=== PATIENT | male | born 1975 | race Caucasian/White ===

== ENCOUNTER 2019-03-11 12:45 | Emergency (ER) | payer OTHER, SELFPAY ==
--- NOTE | 2019-03-11 12:49 | DI.RAD.S_ITS ---
PROCEDURE: XR CHEST 2V INDICATIONS: pain injury TECHNIQUE: 2 views of the chest were acquired. COMPARISON: [facility], CR, RIBS UNILATERAL WITH PA CXR, 05/04/2017, 10:06. FINDINGS: Surgical changes and devices: None. Lungs and pleura: Lungs are clear. No pleural effusions or pneumothorax. Mediastinum: Mediastinal contours are normal. Heart size is normal. Bones and chest wall: No suspicious bony abnormalities. Soft tissues appear unremarkable. IMPRESSION: No acute cardiopulmonary disease. Dictated by: Mary Arriola M.D. on 03/11/2019 at 13:40 Approved by: Mary Arriola M.D. on 03/11/2019 at 13:41
[2019-03-11 12:50] VITALS: BP 147/97; PULSE 64; RESP 16; TEMP 36.3; O2SAT 100; BMI 30.4
--- NOTE | 2019-03-11 13:50 | ED.SOB ---
HPI - SOB/Dyspnea General Chief Complaint: Shortness of Breath/Dyspnea Stated Complaint: fell into wood pile left side rib cage hurting Time Seen by Provider: 03/11/19 13:27 Source: patient and family Mode of arrival: ambulatory Limitations: no limitations History of Present Illness 43-year-old male smoker, otherwise healthy presents with his in the chief complaint of severe left-sided rib pain and shortness of breath with deep inspiration. Yesterday he was chopping wood and tripped and fell backwards onto his left side ribs. He denies any head neck pain. He denies any hemoptysis. He states his pain is worse with motion or with a deep breath. He denies any blood in his urine or nausea, vomiting. He is not dizzy nor weak or lightheaded MD Complaint: shortness of breath and pain with inspiration Onset (ago): day(s) Severity: moderate Consistency/Duration: constant Relieving factors: rest Exacerbating factors: coughing and inspiration Associated symptoms: denies other symptoms Treatment prior to arrival: none Related Data Home oxygen amount: none Previous Rx's Medication Instructions Recorded ibuprofen 800 mg PO Q6H PRN #40 tab 05/04/17 hydrocodone-acetaminophen 1 tab PO Q4-6H PRN #20 tab 03/11/19 ondansetron 4 mg PO TID-QID PRN #10 tab 03/11/19 Allergies Allergy/AdvReac Type Severity Reaction Status Date / Time No Known Drug Allergies Allergy Verified 03/11/19 12:50 Review of Systems Constitutional Denies chills, Denies fever(s), Denies lethargy and Denies weakness Eyes Denies change in vision, Denies eye discharge, Denies irritation and Denies loss of vision ENT Ears, Nose, Mouth, and Throat: Denies change in voice, Denies neck pain and Denies sore throat Cardiovascular Reports chest pain, Denies irregular heart rhythm, Denies lightheadedness, Denies palpitations, Reports dyspnea, Denies dyspnea on exertion and Denies orthopnea Respiratory Denies cough, Reports pain on inspiration, Reports dyspnea, Denies dyspnea on exertion and Denies wheezing Gastrointestinal Gastrointestinal: Denies abdominal pain, Denies change in bowel habits, Denies diarrhea, Denies nausea and Denies vomiting Genitourinary Denies hematuria, Denies flank pain, Denies urinary incontinence and Denies urinary urgency Musculoskeletal Denies neck pain Integumentary/Breasts Denies pruritus, Denies erythema, Denies rash and Denies wounds Neurologic Denies confusion, Denies loss of vision and Denies weakness Psychiatric Denies anxiety, Denies confusion, Denies depression, Denies homicidal ideation and Denies suicidal ideation Endocrine Denies palpitations Hematologic/Lymphatic Denies easy bruising Allergic/Immunologic Denies wheezing PFSH Social History Smoking Status: Current some day smoker Social History Smoking Status: Current some day smoker Exam Narrative Exam Narrative: GENERAL: 43-year-old male appears stated age, obviously very uncomfortable and complaining of left-sided posterior rib pain. HEAD: Atraumatic. Normocephalic. No temporal or scalp tenderness. EYES: Pupils equal round and reactive. Extraocular motions intact. No scleral icterus. No injection or drainage. ENT: Nose without bleeding, purulent drainage or septal hematoma. Throat without erythema, tonsillar hypertrophy or exudate. Uvula midline. Airway patent. NECK: Trachea midline. No JVD or lymphadenopathy. Supple, nontender, no meningeal signs. CARDIOVASCULAR: Regular rate and rhythm without murmurs, gallops, or rubs. Tender to palpation of left lateral ribs, no ecchymosis or crepitance RESPIRATORY: Clear to auscultation. Breath sounds equal bilaterally. No wheezes, rales, or rhonchi. GASTROINTESTINAL: Abdomen soft, non-tender, nondistended. No hepato-splenomegaly, or palpable masses. No guarding. EXTREMITIES: No clubbing, cyanosis, or edema. No joint tenderness, effusion, or edema noted. BACK: Nontender without deformity or crepitance. No flank tenderness. NEURO: AOx3. SKIN: No rash or erythema. Initial Vital Signs Initial Vital Signs: Vital Signs Temperature 97.3 F L 03/11/19 12:50 Pulse Rate 64 03/11/19 12:50 Respiratory Rate 16 03/11/19 12:50 Blood Pressure 147/97 H 03/11/19 12:50 Pulse Oximetry 100 03/11/19 12:50 Course Orders Ordered: ED Orders 03/11/19 12:49 XR chest 2V Stat 03/11/19 13:54 US renal complete Stat Vital Signs - 8 hr 03/11/19 12:50 03/11/19 14:31 Temperature 97.3 F L Pulse Rate 64 57 L Respiratory Rate 16 20 Blood Pressure 147/97 H 129/77 Pulse Oximetry 100 MDM - SOB/Dyspnea Lab Data Urine Dip Bedside Urine Glucose Negative Bedside Urine Bilirubin - Negative Bedside Urine Ketone +/- 5 Urine Specific [place] 0.015 Bedside Urine Occult Blood +/- Bedside Urine Protein +/- 15 Bedside Urine Urobilinogen - Negative Bedside Urine Nitrite - Negative Bedside Urine Leukocytes - Negative Esterase Imaging Data Chest x-ray: Radiologist's impression: [address] [address] XRay Report Signed Patient: Jacoby Gupta WMR#: [id number] : 1975Acct:[id number] Age/Sex: 43 / MDate of Service: 03/11/19 Loc: ED Accession Number: [id number] Procedure: XR chest 2V Ordering Provider: Fernando Campos D.O. PROCEDURE: XR CHEST 2V INDICATIONS: pain injury TECHNIQUE: 2 views of the chest were acquired. COMPARISON: [facility], CR, RIBS UNILATERAL WITH PA CXR, 05/04/2017, 10:06. FINDINGS: Surgical changes and devices: None. Lungs and pleura: Lungs are clear. No pleural effusions or pneumothorax. Mediastinum: Mediastinal contours are normal. Heart size is normal. Bones and chest wall: No suspicious bony abnormalities. Soft tissues appear unremarkable. IMPRESSION: No acute cardiopulmonary disease. Dictated by: Mary Arriola M.D. on 03/11/2019 at 13:40 Renal US: Radiologist's impression: Jacoby Gupta W 43 M [address] [address] Ultrasound Report Signed Patient: Jacoby Gupta WMR#: [id number] : 1975Acct:[id number] Age/Sex: 43 / MDate of Service: 03/11/19 Loc: ED Accession Number: [id number] Procedure: US renal complete Ordering Provider: Fernando Campos D.O. PROCEDURE: US RENAL COMPLETE INDICATIONS: HEMATURIA POST FALL TECHNIQUE: Real-time scanning was performed of the kidneys and bladder, with image documentation. COMPARISON: None. FINDINGS: Kidneys: Kidneys are normal in size. Right kidney measures 11.4 cm long; left kidney measures 10.7 cm long. Right renal cortical thickness is 2.0 cm; left renal cortical thickness is 1.8 cm. Renal cortical echotexture is normal. No cystic or solid renal lesions are identified. A nonobstructing 7 mm calculus is evident within the left renal collecting system that demonstrates mild posterior acoustical shadowing. No additional definite renal calculi are evident. Bladder: Decompressed and subsequently not adequately evaluated. Miscellaneous: No free pelvic fluid. IMPRESSION: 1. Nonobstructing left renal calculus. 2. No hydronephrosis. Dictated by: David Campos M.D. on 03/11/2019 at 13:39 MDM Narrative Medical decision making narrative: Patient with ground level fall onto logs presents with left posterior rib pain. Clear lung sounds bilaterally and x-ray suggests no pneumothorax or rib fracture. No pain in abdomen and urinary complaint but due to small amount of urine on the POC renal ultrasound was performed which was unremarkable. Patient given extensive return precautions and has had his questions answered to his apparent satisfaction Discharge Plan Departure Patient Disposition: Home Clinical Impression: Contusion of rib Qualifiers: Encounter type: initial encounter Laterality: left Qualified Code(s): S20.212A - Contusion of left front wall of thorax, initial encounter Discharge Date/Time: 03/11/19 14:30 Interventions: ED Discharge Assessment Last Done: 03/11/19 14:31 Instructions: DI for Rib Contusion Activity Restrictions/Additional Instructions: *You have been diagnosed with [ rib contusion ] *What to do: *Take medications as directed *Follow up with your primary care provider in 2-3 days, call for an appointment. Let them know you were seen in the Emergency Department and that we ask that you be seen in follow up *Return to ER if you should have any new, worsening or concerning symptoms such as dizziness, sweating, bright red blood in urine or stool, or other bothersome symptoms You have been prescribed narcotic medications. While on these medications you cannot drive or operate heavy machinery. Additionally you cannot sign legal documents or perform any duties such as this. 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 Please understand that we cannot provide further refills of narcotics or controlled substances through the ED and your pain management will need to be through your Primary Care Provider Prescriptions: New hydrocodone-acetaminophen 5-325 mg tablet 1 tab PO Q4-6H PRN (Reason: pain) Qty: 20 RF: 0 ondansetron 4 mg tablet,disintegrating 4 mg PO TID-QID PRN (Reason: nausea and vomiting) Qty: 10 RF: 0 No Action ibuprofen 800 MG tablet 800 mg PO Q6H PRNQty: 40 RF: 0
--- NOTE | 2019-03-11 13:54 | DI.US.S_ITS ---
PROCEDURE: US RENAL COMPLETE INDICATIONS: HEMATURIA POST FALL TECHNIQUE: Real-time scanning was performed of the kidneys and bladder, with image documentation. COMPARISON: None. FINDINGS: Kidneys: Kidneys are normal in size. Right kidney measures 11.4 cm long; left kidney measures 10.7 cm long. Right renal cortical thickness is 2.0 cm; left renal cortical thickness is 1.8 cm. Renal cortical echotexture is normal. No cystic or solid renal lesions are identified. A nonobstructing 7 mm calculus is evident within the left renal collecting system that demonstrates mild posterior acoustical shadowing. No additional definite renal calculi are evident. Bladder: Decompressed and subsequently not adequately evaluated. Miscellaneous: No free pelvic fluid. IMPRESSION: 1. Nonobstructing left renal calculus. 2. No hydronephrosis. Dictated by: David Campos M.D. on 03/11/2019 at 13:39 Approved by: David Campos M.D. on 03/11/2019 at 13:40
--- NOTE | 2019-03-11 14:13 | ED_ITS ---
HPI - SOB/Dyspnea General Chief Complaint: Shortness of Breath/Dyspnea Stated Complaint: fell into wood pile left side rib cage hurting Time Seen by Provider: 03/11/19 13:27 Source: patient and family Mode of arrival: ambulatory Limitations: no limitations History of Present Illness 43-year-old male smoker, otherwise healthy presents with his in the chief complaint of severe left-sided rib pain and shortness of breath with deep insp iration. Yesterday he was chopping wood and tripped and fell backwards onto his left side ribs. He denies any head neck pain. He denies any hemoptysis. He states his pain is worse with motion or with a deep breath. He denies any blood in his urine or nausea, vomiting. He is not dizzy nor weak or lightheaded MD Complaint: shortness of breath and pain with inspiration Onset (ago): day(s) Severity: moderate Consistency/Duration: constant Relieving factors: rest Exacerbating factors: coughing and inspiration Associated symptoms: denies other symptoms Treatment prior to arrival: none Related Data Home oxygen amount: none Previous Rx's Medication Instructions Recorded ibuprofen 800 mg PO Q6H PRN #40 tab 05/04/17 hydrocodone-acetaminophen 1 tab PO Q4-6H PRN #20 tab 03/11/19 ondansetron 4 mg PO TID-QID PRN #10 tab 03/11/19 Allergies Allergy/AdvReac Type Severity Reaction Status Date / Time No Known Drug Allergies Allergy Verified 03/11/19 12:50 Review of Systems Constitutional Denies chills, Denies fever(s), Denies lethargy and Denies weakness Eyes Denies change in vision, Denies eye discharge, Denies irritation and Denies loss of vision ENT Ears, Nose, Mouth, and Throat: Denies change in voice, Denies neck pain and Denies sore throat Cardiovascular Reports chest pain, Denies irregular heart rhythm, Denies lightheadedness, Denies palpitations, Reports dyspnea, Denies dyspnea on exertion and Denies orthopnea Respiratory Denies cough, Reports pain on inspiration, Reports dyspnea, Denies dyspnea on exertion and Denies wheezing Gastrointestinal Gastrointestinal: Denies abdominal pain, Denies change in bowel habits, Denies diarrhea, Denies nausea and Denies vomiting Genitourinary Denies hematuria, Denies flank pain, Denies urinary incontinence and Denies urinary urgency Musculoskeletal Denies neck pain Integumentary/Breasts Denies pruritus, Denies erythema, Denies rash and Denies wounds Neurologic Denies confusion, Denies loss of vision and Denies weakness Psychiatric Denies anxiety, Denies confusion, Denies depression, Denies homicidal ideation and Denies suicidal ideation Endocrine Denies palpitations Hematologic/Lymphatic Denies easy bruising Allergic/Immunologic Denies wheezing PFSH Social History Smoking Status: Current some day smoker Social History Smoking Status: Current some day smoker Exam Narrative Exam Narrative: GENERAL: 43-year-old male appears stated age, obviously very uncomfortable and complaining of left-sided posterior rib pain. HEAD: Atraumatic. Normocephalic. No temporal or scalp tenderness. EYES: Pupils equal round and reactive. Extraocular motions intact. No scleral icterus. No injection or drainage. ENT: Nose without bleeding, purulent drainage or septal hematoma. Throat without erythema, tonsillar hypertrophy or exudate. Uvula midline. Airway patent. NECK: Trachea midline. No JVD or lymphadenopathy. Supple, nontender, no meningeal signs. CARDIOVASCULAR: Regular rate and rhythm without murmurs, gallops, or rubs. Tender to palpation of left lateral ribs, no ecchymosis or crepitance RESPIRATORY: Clear to auscultation. Breath sounds equal bilaterally. No wheezes, rales, or rhonchi. GASTROINTESTINAL: Abdomen soft, non-tender, nondistended. No hepato- splenomegaly, or palpable masses. No guarding. EXTREMITIES: No clubbing, cyanosis, or edema. No joint tenderness, effusion, or edema noted. BACK: Nontender without deformity or crepitance. No flank tenderness. NEURO: AOx3. SKIN: No rash or erythema. Initial Vital Signs Initial Vital Signs: Vital Signs Temperature 97.3 F L 03/11/19 12:50 Pulse Rate 64 03/11/19 12:50 Respiratory Rate 16 03/11/19 12:50 Blood Pressure 147/97 H 03/11/19 12:50 Pulse Oximetry 100 03/11/19 12:50 Course Orders Ordered: ED Orders 03/11/19 12:49 XR chest 2V Stat 03/11/19 13:54 US renal complete Stat Vital Signs - 8 hr 03/11/19 12:50 03/11/19 14:31 Temperature 97.3 F L Pulse Rate 64 57 L Respiratory Rate 16 20 Blood Pressure 147/97 H 129/77 Pulse Oximetry 100 MDM - SOB/Dyspnea Lab Data Urine Dip Bedside Urine Glucose Negative Bedside Urine Bilirubin - Negative Bedside Urine Ketone +/- 5 Urine Specific [place] 0.015 Bedside Urine Occult Blood +/- Bedside Urine Protein +/- 15 Bedside Urine Urobilinogen - Negative Bedside Urine Nitrite - Negative Bedside Urine Leukocytes - Negative Esterase Imaging Data Chest x-ray: Radiologist's impression: [address] [address] XRay Report Signed Patient: Jacoby Gupta WMR#: [id number] : 1975Acct:[id number] Age/Sex: 43 / MDate of Service: 03/11/19 Loc: ED Accession Number: [id number] Procedure: XR chest 2V Ordering Provider: Fernando Campos D.O. PROCEDURE: XR CHEST 2V INDICATIONS: pain injury TECHNIQUE: 2 views of the chest were acquired. COMPARISON: [facility], CR, RIBS UNILATERAL WITH PA CXR, 05/04/2017, 10:06. FINDINGS: Surgical changes and devices: None. Lungs and pleura: Lungs are clear. No pleural effusions or pneumothorax. Mediastinum: Mediastinal contours are normal. Heart size is normal. Bones and chest wall: No suspicious bony abnormalities. Soft tissues appear unremarkable. IMPRESSION: No acute cardiopulmonary disease. Dictated by: Mary Arriola M.D. on 03/11/2019 at 13:40 Renal US: Radiologist's impression: Jacoby Gupta W 43 M [address] [address] Ultrasound Report Signed Patient: Jacoby Gupta WMR#: [id number] : 1975Acct:[id number] Age/Sex: 43 / MDate of Service: 03/11/19 Loc: ED Accession Number: [id number] Procedure: US renal complete Ordering Provider: Fernando Campos D.O. PROCEDURE: US RENAL COMPLETE INDICATIONS: HEMATURIA POST FALL TECHNIQUE: Real-time scanning was performed of the kidneys and bladder, with image documentation. COMPARISON: None. FINDINGS: Kidneys: Kidneys are normal in size. Right kidney measures 11.4 cm long; left kidney measures 10.7 cm long. Right renal cortical thickness is 2.0 cm; left renal cortical thickness is 1.8 cm. Renal cortical echotexture is normal. No cystic or solid renal lesions are identified. A nonobstructing 7 mm calculus is evident within the left renal collecting system that demonstrates mild posterior acoustical shadowing. No additional definite renal calculi are evident. Bladder: Decompressed and subsequently not adequately evaluated. Miscellaneous: No free pelvic fluid. IMPRESSION: 1. Nonobstructing left renal calculus. 2. No hydronephrosis. Dictated by: David Campos M.D. on 03/11/2019 at 13:39 MDM Narrative Medical decision making narrative: Patient with ground level fall onto logs presents with left posterior rib pain. Clear lung sounds bilaterally and x-ray suggests no pneumothorax or rib fracture. No pain in abdomen and urinary complaint but due to small amount of urine on the POC renal ultrasound was performed which was unremarkable. Patient given extensive return precautions and has had his questions answered to his apparent satisfaction Discharge Plan Departure Patient Disposition: Home Clinical Impression: Contusion of rib Qualifiers: Encounter type: initial encounter Laterality: left Qualified Code(s): S20.212A - Contusion of left front wall of thorax, initial encounter Discharge Date/Time: 03/11/19 14:30 Interventions: ED Discharge Assessment Last Done: 03/11/19 14:31 Instructions: DI for Rib Contusion Activity Restrictions/Additional Instructions: *You have been diagnosed with [ rib contusion ] *What to do: *Take medications as directed *Follow up with your primary care provider in 2-3 days, call for an appointment. Let them know you were seen in the Emergency Department and that we ask that you be seen in follow up *Return to ER if you should have any new, worsening or concerning symptoms such as dizziness, sweating, bright red blood in urine or stool, or other bothersome symptoms You have been prescribed narcotic medications. While on these medications you cannot drive or operate heavy machinery. Additionally you cannot sign legal documents or perform any duties such as this. 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 Please understand that we cannot provide further refills of narcotics or controlled substances through the ED and your pain management will need to be through your Primary Care Provider Prescriptions: New hydrocodone-acetaminophen 5-325 mg tablet 1 tab PO Q4-6H PRN (Reason: pain) Qty: 20 RF: 0 ondansetron 4 mg tablet,disintegrating 4 mg PO TID-QID PRN (Reason: nausea and vomiting) Qty: 10 RF: 0 No Action ibuprofen 800 MG tablet 800 mg PO Q6H PRNQty: 40 RF: 0
[2019-03-11 14:31] VITALS: BP 129/77; PULSE 57; RESP 20
== END 2019-03-11 14:30 | disposition home or self-care (01) ==
PROVIDERS: Emergency Provider Emergency Medicine
DX: S20.212A Contusion of left front wall of thorax, initial encounter (principal); W01.0XXA Fall on same level from slipping, tripping and stumbling without subsequent striking against object, initial encounter
CPT/HCPCS: 71046; 76770; 81003; 99282; 99283

== ENCOUNTER 2019-09-30 15:16 | Emergency (ER) | payer OTHER, SELFPAY ==
[2019-09-30 15:20] VITALS: BP 145/97; PULSE 85; RESP 20; TEMP 36.8; O2SAT 100
--- NOTE | 2019-09-30 15:24 | DI.RAD.S_ITS ---
PROCEDURE: XR CHEST 2V INDICATIONS: chest pain TECHNIQUE: 2 views of the chest were acquired. COMPARISON: [facility], CR, XR CHEST 2V, 03/11/2019, 13:01. FINDINGS: Surgical changes and devices: None. Lungs and pleura: Lungs are clear. No pleural effusions or pneumothorax. Mediastinum: Mediastinal contours are normal. Heart size is normal. Bones and chest wall: No suspicious bony abnormalities. Soft tissues appear unremarkable. IMPRESSION: No acute cardiopulmonary disease process. Dictated by: Prabha Nicole MD, PhD on 09/30/2019 at 15:38 Approved by: Prabha Nicole MD, PhD on 09/30/2019 at 15:38
[2019-09-30 15:53] LABS: Add Manual Diff / Slide Review NO; Basophils Absolute Auto 100 /uL (0-100); Basophils Percent Auto 0.8 % (0-2); Eosinophils Absolute Auto 100 /uL (0-450); Eosinophils Percent Auto 1.4 % (2-4); Hematocrit 48.9 % (41-53); Hemoglobin 17.4 g/dL (13.5-17.5); Lymphocytes Absolute Auto 2500 /uL (1100-4500); Lymphocytes Percent Auto 30.3 % (25-40); Mean Corpuscular HGB Conc 35.6 % (30-36); Mean Corpuscular Hemoglobin 31.2 PG (26-34); Mean Corpuscular Volume 87.6 fL (80-100); Monocytes Absolute Auto 500 /uL (0-900); Monocytes Percent Auto 6.2 % (3-14); Neutrophils Absolute Auto 5100 /uL (1500-7000); Neutrophils Percent Auto 61.3 % (50-75); Platelet Count 351 X10^3/uL (150-400); Red Blood Cell Count 5.58 X10^6/uL (4.5-5.9); Red Cell Distribution Width 12.7 % (11.6-14.8); White Blood Cell Count 8.3 X10^3/uL (4.5-11.0)
[2019-09-30 16:25] LABS: Alanine Aminotransferase 63 IU/L (<50); Albumin Globulin Ratio 1.5 (1.0-2.8); Alkaline Phosphatase 103 U/L (38-126); Aspartate Aminotransferase 44 IU/L (17-59); Bilirubin Total 1.2 mg/dL (0.2-1.3); Blood Urea Nitrogen 22 mg/dL (9-20); Calcium 9.8 mg/dL (8.4-10.2); Carbon Dioxide 27 mmol/L (22-32); Chloride 100 mmol/L (98-107); Estimated Glomerular Filt Rate > 60.0 mL/min (>60); Globulin 3.3 g/dL (1.7-4.1); Glucose 111 mg/dL (70-100); HEMOLYSIS < 15 (0-50); Potassium 4.6 mmol/L (3.4-5.1); Sodium 138 mmol/L (137-145); Total Protein 8.3 g/dL (6.3-8.2)
--- NOTE | 2019-09-30 16:27 | ED_ITS ---
HPI - Chest Pain General Chief Complaint: Chest Pain Stated Complaint: Chest Pains Time Seen by Provider: 09/30/19 16:06 Source: patient Mode of arrival: Ambulatory Limitations: no limitations History of Present Illness HPI narrative: 44-year-old male here for evaluation of palpitations. He states they min going on for several years now however he has noticed them recently occurring more often in becoming more persistent. Denies any shortness of breath. Has never passed now because of the symptoms. Notices the more in the evening. No new medications. Called his primary doctor told him to come to the emergency department. Related Data Allergies Allergy/AdvReac Type Severity Reaction Status Date / Time No Known Drug Allergies Allergy Verified 03/11/19 12:50 Review of Systems Constitutional Constitutional: Denies fever(s) and Denies headache(s) ENT Ears, Nose, Mouth, and Throat: Denies headache(s) Cardiovascular Cardiovascular: Denies chest pain, Reports rapid heart rate, Denies lightheadedness, Reports palpitations and Denies dyspnea Respiratory Respiratory: Denies cough and Denies dyspnea Gastrointestinal Gastrointestinal: Reports abdominal pain, Denies nausea and Denies vomiting Musculoskeletal Musculoskeletal: Denies myalgias and Denies arthralgias Integumentary/Breasts Skin/Breast: Denies lesions and Denies rash Neurologic Neurologic: Denies behavioral changes and Denies headache(s) Psychiatric Psychiatric: Denies behavioral changes Endocrine Endocrine: Reports palpitations Patient History Medical History Allergic reaction (Inactive) Hives (Inactive) Social History Smoking Status: Current some day smoker Smoking Status: Current some day smoker tobacco type: cigarettes alcohol intake frequency: 0-2 drinks per day Substance Use Type: does not use Exam Initial Vital Signs Initial Vital Signs: Vital Signs Temperature 98.3 F 09/30/19 15:20 Pulse Rate 85 09/30/19 15:20 Respiratory Rate 20 09/30/19 15:20 Blood Pressure 145/97 H 09/30/19 15:20 Pulse Oximetry 100 09/30/19 15:20 Const General: cooperative, comfortable and well developed Limitations: mental status not altered Resp Effort & Inspection: normal respiratory effort Auscultation: clear to auscultation bilaterally Cardio Rate: regular rate Rhythm: regular rhythm Skin Lesions: no lesions Rashes: no rashes Neuro General: alert and oriented x3 Cognition: normal cognition Speech: speech normal Extrem General: normal to inspection and capillary refill normal Psych Appearance: grossly normal and well kempt Scores GCS Calvin coma scale eye opening: Spontaneous Calvin coma scale verbal response: Orientated Calvin coma scale motor response: Obey commands Calvin coma scale total score: 15 Course Orders Ordered: ED Orders 09/30/19 15:24 Chest [XR chest 2V] Stat EKG-12 Lead Stat 09/30/19 15:44 Complete Blood Count AUTO DIFF Stat Comprehensive Metabolic Panel Stat Troponin I Stat Vital Signs Vital signs: Vital Signs - 8 hr 09/30/19 15:20 Temperature 98.3 F Pulse Rate 85 Respiratory Rate 20 Blood Pressure 145/97 H Pulse Oximetry 100 MDM - Chest Pain Lab Data Attestation: I reviewed the patient's lab results. Result diagrams: 09/30/19 15:44 09/30/19 15:44 Labs: Lab Results 09/30/19 09/30/19 Range/Units 15:44 15:44 WBC 8.3 (4.5-11.0) X10^3/uL RBC 5.58 (4.5-5.9) X10^6/uL Hgb 17.4 (13.5-17.5) g/dL Hct 48.9 (41-53) % MCV 87.6 (80-100) fL MCH 31.2 (26-34) PG MCHC 35.6 (30-36) % RDW 12.7 (11.6-14.8) % Plt Count 351 (150-400) X10^3/uL Neut % (Auto) 61.3 (50-75) % Lymph % (Auto) 30.3 (25-40) % [place] % (Auto) 6.2 (3-14) % Eos % (Auto) 1.4 L (2-4) % Baso % (Auto) 0.8 (0-2) % Neut # (Auto) 5100 (8718-4810) /uL Lymph # (Auto) 2500 (6601-5521) /uL [place] # (Auto) 500 (0-900) /uL Eos # (Auto) 100 (0-450) /uL Baso # (Auto) 100 (0-100) /uL Sodium 138 (137-145) mmol/L Potassium 4.6 (3.4-5.1) mmol/L Chloride 100 (98-107) mmol/L Carbon Dioxide 27 (22-32) mmol/L BUN 22 H (9-20) mg/dL Creatinine 1.00 (0.66-1.25) mg/dL Estimated GFR > 60.0 (>60) mL/min BUN/Creatinine Ratio 22.0 (6-22) Glucose 111 H (70-100) mg/dL Calcium 9.8 (8.4-10.2) mg/dL Total Bilirubin 1.2 (0.2-1.3) mg/dL AST 44 (17-59) IU/L ALT 63 H (<50) IU/L Alkaline Phosphatase 103 (38-126) U/L Troponin I < 0.012 (0.01-0.034) ng/mL Total Protein 8.3 H (6.3-8.2) g/dL Albumin 5.0 (3.5-5.0) g/dL Globulin 3.3 (1.7-4.1) g/dL Albumin/Globulin Ratio 1.5 (1.0-2.8) Imaging Data Chest x-ray: Radiologist's Impression: [address] [address] XRay Report Signed Patient: Jacoby Gupta WMR#: [id number] : 1975Acct:[id number] Age/Sex: 44 / MDate of Service: 09/30/19 Loc: ED Accession Number: [id number] Procedure: XR chest 2V Ordering Provider: Luis Cavazos D.O. PROCEDURE: XR CHEST 2V INDICATIONS: chest pain TECHNIQUE: 2 views of the chest were acquired. COMPARISON: [facility], CR, XR CHEST 2V, 03/11/2019, 13:01. FINDINGS: Surgical changes and devices: None. Lungs and pleura: Lungs are clear. No pleural effusions or pneumothorax. Mediastinum: Mediastinal contours are normal. Heart size is normal. Bones and chest wall: No suspicious bony abnormalities. Soft tissues appear unremarkable. IMPRESSION: No acute cardiopulmonary disease process. Dictated by: Prabha Nicole MD, PhD on 09/30/2019 at 15:38 Approved by: Prabha Nicole MD, PhD on 09/30/2019 at 15:38 ECG Data Attestation: I personally reviewed and interpreted this ECG as follows: Prior ECG tracings: not available for review Interpretation: Sinus rhythm Ventricular rate 81 Normal axis Normal QRS Normal QTC MDM Narrative Medical decision making narrative: Patient was symptomatic at the time my exam. His exam was relatively unremarkable. EKG is unremarkable. Labs unremarkable. Low suspicion for ACS. We did discuss palpitations. Informed him he should talk with his primary provider about a Holter monitor. He was given return precautions and follow-up instructions. He expressed understanding and agreeme nt plan. Discharge Plan Departure Patient Disposition: Home Clinical Impression: Palpitations Instructions: DI for Palpitations Activity Restrictions/Additional Instructions: Recommend that you talk with your primary doctor about a Holter monitor. Return to the emergency department for new symptoms to include chest pain, symptoms that do not resolve on their own, passing out because of the symptoms, shortness of breath or any other concerning symptoms.
[2019-09-30 16:36] LABS: Troponin I < 0.012 ng/mL (0.01-0.034)
[2019-09-30 17:20] VITALS: BP 135/79; PULSE 75; RESP 18; O2SAT 99
== END 2019-09-30 17:20 | disposition home or self-care (01) ==
PROVIDERS: Emergency Provider Emergency Medicine
DX: R00.2 Palpitations (principal); R07.9 Chest pain, unspecified; R10.9 Unspecified abdominal pain
CPT/HCPCS: 36415; 71046; 80053; 84484; 85025; 93005; 99282; 99285

== ENCOUNTER 2020-06-30 21:46 | Emergency (ER) | payer OTHER, SELFPAY ==
[2020-06-30] VITALS (7 sets, daily range): BP systolic 139–158; BP diastolic 87–109; PULSE 77–92; RESP 20–22; TEMP 36.6; O2SAT 96–100
--- NOTE | 2020-06-30 22:09 | ED.URI ---
HPI - URI/Sore Throat General Chief Complaint: Upper Respiratory Symptoms Stated Complaint: chest pain, short of breath Time Seen by Provider: 06/30/20 22:02 Mode of arrival: Ambulatory Limitations: no limitations History of Present Illness HPI Narrative: 44-year-old gentleman presents with a month of increasing chest pressure tightness, exertional dyspnea, increasing fatigue, dizziness when standing, orthopnea and PND, nausea vomiting cold sweats. He notes that in 2007 he has had increased anxiety and will have palpitations and chest pain with that anxiety. He was concerned that his symptoms over the last month were related more to anxiety and panic which is why he has not sought earlier care. In mid May he did have a negative COVID test. Related Data Allergies Allergy/AdvReac Type Severity Reaction Status Date / Time No Known Drug Allergies Allergy Verified 03/11/19 12:50 Review of Systems Review of Systems Narrative: Remainder of review of systems including constitutional, ENT, cardiovascular, respiratory, GI, , musculoskeletal, skin, neurologic and psychiatric systems reviewed and are unremarkable except as noted in HPI. Patient History Medical History Allergic reaction (Inactive) Anxiety attack (Acute) Hives (Inactive) Social History Smoking Status: Current some day smoker Smoking Status: Current some day smoker tobacco type: cigarettes alcohol intake frequency: 0-2 drinks per day Substance Use Type: does not use Exam Narrative Exam Narrative: General: Healthy appearing, in no acute distress. Able to give a complete and coherent history. Well-nourished well-developed HEENT: Moist mucous membranes, normal sclera with reactive pupils, Neck: No JVD, supple Respiratory: Lungs are clear to auscultation, no wheezing no rales no rhonchi. Full and symmetrical air movement Cardiac: Regular rate and rhythm no murmurs no bruits Abdomen: Soft nontender good bowel tones, no flank pain Skin: Warm and dry, no rashes Neurologic: Grossly neurologically intact with no obvious asymmetries or abnormalities Extremities: No trauma, well perfused Psych: Cooperative, appropriate insight and affect Initial Vital Signs Initial Vital Signs: Vital Signs Temperature 98 F 06/30/20 21:53 Pulse Rate 92 H 06/30/20 21:53 Respiratory Rate 20 06/30/20 21:53 Blood Pressure 158/109 H 06/30/20 21:53 Pulse Oximetry 100 06/30/20 21:53 Course Orders Ordered: ED Orders 06/30/20 22:21 XR chest 1V Stat 06/30/20 22:22 COVID19 Stat 06/30/20 22:50 Complete Blood Count AUTO DIFF Stat Comprehensive Metabolic Panel Stat D Dimer Stat Lipase Stat Procalcitonin Stat Troponin & CK Cardiac Panel Stat Discontinued Medications Al Hydrox/Mg Hydrox/Simethicone 20 ml/ Lidocaine HCl 15 ml 0 ml PO NOW ONE Stop: 07/01/20 00:14 Last Admin: 07/01/20 00:21 Dose: 35 ml Documented by: JONN Lorazepam (Ativan) 2 mg IM NOW ONE Stop: 07/01/20 00:20 Last Admin: 07/01/20 01:00 Dose: Not Given Documented by: JONN Ondansetron HCl (Zofran) 4 mg IV NOW ONE Stop: 07/01/20 00:14 Last Admin: 07/01/20 00:22 Dose: 4 mg Documented by: JONN Vital Signs Vital signs: Vital Signs - 8 hr 06/30/20 21:53 06/30/20 21:58 06/30/20 22:00 Temperature 98 F Pulse Rate 92 H 82 79 Respiratory Rate 20 22 Blood Pressure 158/109 H 150/87 H Pulse Oximetry 100 96 99 06/30/20 22:02 06/30/20 22:30 06/30/20 23:00 Temperature Pulse Rate 88 84 79 Respiratory Rate 20 Blood Pressure 150/87 H 144/91 H 139/98 H Pulse Oximetry 100 99 98 06/30/20 23:30 07/01/20 00:00 07/01/20 00:06 Temperature Pulse Rate 77 82 75 Respiratory Rate Blood Pressure 152/94 H 169/100 H 163/89 H Pulse Oximetry 97 98 99 MDM - URI/Sore Throat Medical Records Attestation: I reviewed the patient's medical records. Lab Data Attestation: I reviewed the patient's lab results. Result diagrams: 06/30/20 22:50 06/30/20 22:50 Labs: Lab Results 06/30/20 06/30/20 06/30/20 Range/Units 22:40 22:50 22:50 WBC 10.9 (4.5-11.0) X10^3/uL RBC 4.99 (4.5-5.9) X10^6/uL Hgb 15.3 (13.5-17.5) g/dL Hct 43.8 (41-53) % MCV 87.7 (80-100) fL MCH 30.6 (26-34) PG MCHC 34.9 (30-36) % RDW 13.0 (11.6-14.8) % Plt Count 299 (150-400) X10^3/uL Neut % (Auto) 59.9 (50-75) % Lymph % (Auto) 30.2 (25-40) % [place] % (Auto) 7.6 (3-14) % Eos % (Auto) 1.5 L (2-4) % Baso % (Auto) 0.8 (0-2) % Neut # (Auto) 6500 (1013-5298) /uL Lymph # (Auto) 3300 (6787-5308) /uL [place] # (Auto) 800 (0-900) /uL Eos # (Auto) 200 (0-450) /uL Baso # (Auto) 100 (0-100) /uL D-Dimer < 200 (<230) ng/mL Sodium (137-145) mmol/L Potassium (3.4-5.1) mmol/L Chloride (98-107) mmol/L Carbon Dioxide (22-32) mmol/L BUN (9-20) mg/dL Creatinine (0.66-1.25) mg/dL Estimated GFR (>60) mL/min BUN/Creatinine Ratio (6-22) Glucose (70-100) mg/dL Calcium (8.4-10.2) mg/dL Total Bilirubin (0.2-1.3) mg/dL AST (17-59) IU/L ALT (<50) IU/L Alkaline Phosphatase (38-126) U/L Total Creatine Kinase (55-170) U/L CK-MB (CK-2) (<2.37) ng/mL CK-MB (CK-2) Rel Index (1.5-5.0) % Troponin I (0.01-0.034) ng/mL Total Protein (6.3-8.2) g/dL Albumin (3.5-5.0) g/dL Globulin (1.7-4.1) g/dL Albumin/Globulin Ratio (1.0-2.8) Lipase (23-300) U/L Procalcitonin (<0.5) ng/mL COVID-19 PCR Negative (Negative) 06/30/20 06/30/20 Range/Units 22:50 22:50 WBC (4.5-11.0) X10^3/uL RBC (4.5-5.9) X10^6/uL Hgb (13.5-17.5) g/dL Hct (41-53) % MCV (80-100) fL MCH (26-34) PG MCHC (30-36) % RDW (11.6-14.8) % Plt Count (150-400) X10^3/uL Neut % (Auto) (50-75) % Lymph % (Auto) (25-40) % [place] % (Auto) (3-14) % Eos % (Auto) (2-4) % Baso % (Auto) (0-2) % Neut # (Auto) (5291-4521) /uL Lymph # (Auto) (6754-7303) /uL [place] # (Auto) (0-900) /uL Eos # (Auto) (0-450) /uL Baso # (Auto) (0-100) /uL D-Dimer (<230) ng/mL Sodium 136 L (137-145) mmol/L Potassium 4.1 (3.4-5.1) mmol/L Chloride 99 (98-107) mmol/L Carbon Dioxide 33 H (22-32) mmol/L BUN 17 (9-20) mg/dL Creatinine 1.24 (0.66-1.25) mg/dL Estimated GFR > 60.0 (>60) mL/min BUN/Creatinine Ratio 13.7 (6-22) Glucose 97 (70-100) mg/dL Calcium 9.3 (8.4-10.2) mg/dL Total Bilirubin 1.2 (0.2-1.3) mg/dL AST 30 (17-59) IU/L ALT 33 (<50) IU/L Alkaline Phosphatase 78 (38-126) U/L Total Creatine Kinase 194 H (55-170) U/L CK-MB (CK-2) 0.70 (<2.37) ng/mL CK-MB (CK-2) Rel Index 0.4 L (1.5-5.0) % Troponin I < 0.012 (0.01-0.034) ng/mL Total Protein 7.3 (6.3-8.2) g/dL Albumin 4.4 (3.5-5.0) g/dL Globulin 2.9 (1.7-4.1) g/dL Albumin/Globulin Ratio 1.5 (1.0-2.8) Lipase 49 (23-300) U/L Procalcitonin < 0.05 (<0.5) ng/mL COVID-19 PCR (Negative) Imaging Data Chest x-ray: Radiologist's Impression: No significant abnormalities Dr Jori Fuentes MD ECG Data Interpretation: Sinus rhythm at a rate of 75 Normal axis, normal intervals No acute ischemia MDM Narrative Medical decision making narrative: Labs x-ray and EKG reviewed. Signs and symptoms are concerning for heart failure, pulmonary embolism, acute coronary syndrome, pulmonary hypertension. They are not consistent with anxiety. Workup at this point has ruled out acute heart failure or cardiomegaly, there is no evidence of pneumonia, pneumothorax, acute coronary syndrome, PE or other infectious etiology. At this time he is safe for home discharge and next step in his workup would be outpatient follow-up with his primary care physician and echocardiogram. Symptoms were slightly improved with a GI cocktail and he currently is on omeprazole as well as Carafate and takes multiple times daily he has been sleeping in a recliner because of the significant reflux. It may be that the reflux is significant enough that it is causing some a dyspnea and may benefit from gastroenterology consultation as he is so symptomatic on appropriate treatment. All of these are discussed with the patient. He week given copies of his labs to share with his primary care physician on the [employer] [facility] and he is safe for home discharge at this time. Discharge Plan Departure Patient Disposition: Home Clinical Impression: Dyspnea Qualifiers: Dyspnea type: shortness of breath Qualified Code(s): R06.02 - Shortness of breath Chest pain Qualifiers: Chest pain type: other chest pain Qualified Code(s): R07.89 - Other chest pain Instructions: DI for Shortness of Breath Activity Restrictions/Additional Instructions: Thank you for coming in today I do find your symptoms concerning and do not think that this is due to anxiety. You had a thorough workup done in the emergency department and shows no evidence of heart attack or acute coronary syndrome, no blood clots in your lungs, no collapsed lung, no pneumonia, no enlarged heart, no anemia and no other life-threatening issues today. It is safe for you to go home however, I would recommend following up with your primary care physician. I believe that further follow-up regarding your heart likely in the form of an echocardiogram. Also, you may benefit from Gastroenterology consult and EGD given your severe heartburn and reflux symptoms even in the setting of appropriate medications and current treatment. I have given you copies of the labs that were done in the emergency department today for you to share with your primary care physician base. If you find that you are getting worse, please return to the emergency department. Referrals: Lenore Ruiz DO [Primary Care Provider] -
--- NOTE | 2020-06-30 22:21 | DI.RAD.S_ITS ---
PROCEDURE: XR CHEST 1V INDICATIONS: cough TECHNIQUE: One view of the chest was acquired. COMPARISON: [facility], CR, XR CHEST 2V, 09/30/2019, 15:25. FINDINGS: Surgical changes and devices: None. Lungs and pleura: Lungs are clear. No pleural effusions or pneumothorax. Mediastinum: Mediastinal contours appear normal. Heart size is normal. Bones and chest wall: No suspicious bony lesions. Overlying soft tissues appear unremarkable. IMPRESSION: No acute cardiopulmonary disease process. Dictated by: Prabha Nicole MD, PhD on 07/01/2020 at 8:53 Approved by: Prabha Nicole MD, PhD on 07/01/2020 at 8:53
[2020-06-30 23:01] LABS: Add Manual Diff / Slide Review NO; Basophils Absolute Auto 100 /uL (0-100); Basophils Percent Auto 0.8 % (0-2); Eosinophils Absolute Auto 200 /uL (0-450); Eosinophils Percent Auto 1.5 % (2-4); Hematocrit 43.8 % (41-53); Hemoglobin 15.3 g/dL (13.5-17.5); Lymphocytes Absolute Auto 3300 /uL (1100-4500); Lymphocytes Percent Auto 30.2 % (25-40); Mean Corpuscular HGB Conc 34.9 % (30-36); Mean Corpuscular Hemoglobin 30.6 PG (26-34); Mean Corpuscular Volume 87.7 fL (80-100); Monocytes Absolute Auto 800 /uL (0-900); Monocytes Percent Auto 7.6 % (3-14); Neutrophils Absolute Auto 6500 /uL (1500-7000); Neutrophils Percent Auto 59.9 % (50-75); Platelet Count 299 X10^3/uL (150-400); Red Blood Cell Count 4.99 X10^6/uL (4.5-5.9); White Blood Cell Count 10.9 X10^3/uL (4.5-11.0)
[2020-06-30 23:14] LABS: Alanine Aminotransferase 33 IU/L (<50); Albumin 4.4 g/dL (3.5-5.0); Albumin Globulin Ratio 1.5 (1.0-2.8); Alkaline Phosphatase 78 U/L (38-126); Aspartate Aminotransferase 30 IU/L (17-59); BUN Creatinine Ratio 13.7 (6-22); Bilirubin Total 1.2 mg/dL (0.2-1.3); Blood Urea Nitrogen 17 mg/dL (9-20); Calcium 9.3 mg/dL (8.4-10.2); Carbon Dioxide 33 mmol/L (22-32); Chloride 99 mmol/L (98-107); Creatine Kinase 194 U/L (55-170); Estimated Glomerular Filt Rate > 60.0 mL/min (>60); Globulin 2.9 g/dL (1.7-4.1); Glucose 97 mg/dL (70-100); HEMOLYSIS < 15 (0-50); Lipase 49 U/L (23-300); Potassium 4.1 mmol/L (3.4-5.1); Sodium 136 mmol/L (137-145); Total Protein 7.3 g/dL (6.3-8.2)
[2020-06-30 23:15] LABS: COVID19 -Nasal RAPID Negative (Negative)
[2020-06-30 23:15] LABS: D Dimer < 200 ng/mL (<230)
[2020-06-30 23:25] LABS: Troponin I < 0.012 ng/mL (0.01-0.034)
[2020-06-30 23:29] LABS: CKMB % Relative Index 0.4 % (1.5-5.0)
[2020-06-30 23:30] LABS: Procalcitonin < 0.05 ng/mL (<0.5)
[2020-07-01] VITALS: BP 169/100; PULSE 82; O2SAT 98
[2020-07-01 00:06] VITALS: BP 163/89; PULSE 75; O2SAT 99
[2020-07-01] MEDS: MAG HYDROX/ALUMINUM/SIMETH SUS 20 ML, LIDOCAINE VISCOUS 2% 15 ML PO (00:21)
[2020-07-01] MEDS: ONDANSETRON 4 MG/2 ML INJ IV (00:22)
[2020-07-01 00:30] VITALS: BP 151/91; PULSE 79; O2SAT 98
[2020-07-01 01:00] VITALS: BP 135/82; PULSE 73; O2SAT 96
== END 2020-07-01 01:35 | disposition home or self-care (01) ==
PROVIDERS: Emergency Provider Emergency Medicine; PCP Family Medicine
DX: R06.02 Shortness of breath (principal); R07.89 Other chest pain; F41.9 Anxiety disorder, unspecified; R06.00 Dyspnea, unspecified; R11.2 Nausea with vomiting, unspecified
CPT/HCPCS: 36415; 71045; 80053; 82550; 82553; 83690; 84145; 84484; 85025; 85379; 87635; 93005; 96374; 99284; J2405

== ENCOUNTER → 2020-07-29 15:55 | Outpatient (CLI) | payer OTHER, SELFPAY ==
--- NOTE | 2020-07-29 15:57 | DI.ECHO.S_ITS ---
[facility]---------+ [facility] +---------+ : : [address] [place] : : : : [id number] : : : : Phone: [phone] Echocardiogram Report + + :Name: JOSE MANUEL WADE Study Date: 07/29/2020 Height: 68 in : :[facility] Weight: 200 lb : : Gender: Male BSA: 2.0 m2 : :: 1975 Age: 45 yrs BP: 143/90 mmHg: :Reason For Study: CHEST PAIN : :Ordering Physician: PONCHO, : :MAXX Ott Performed By: Rama Bowie : :Referring: MAXX SANDRA : + + Interpretation Summary The left ventricle is normal in size and wall thickness. The ejection fraction is estimated to be 60-65%. The right ventricle is normal in size and function. No significant valvular pathology seen. The IVC is of normal diameter and collapses greater than 50% with a sniff. This suggests a low right atrial pressure of 3 mm Hg. Procedure: A two-dimensional transthoracic echocardiogram with color flow and Doppler was performed. The study quality was technically adequate. There is no prior echocardiogram noted for this patient. The patient was in sinus rhythm with heart rates between 66-93 bpm during the exam. Left Ventricle: The left ventricle is normal in size and wall thickness. There is no thrombus. A false chord is noted (normal variant). The ejection fraction is estimated to be 60-65%. There are no focal wall motion abnormalities. Diastolic parameters suggest a relaxation abnormality of the left ventricle, consistent with probable normal filling pressures. Right Ventricle: The right ventricle is normal in size and function. A calcified moderator band is seen in the right ventricle. Atria: Both atria are normal in size. There is no Doppler evidence for an interatrial shunt. Mitral Valve: The mitral valve is normal in structure and function. There is no mitral regurgitation noted. Aortic Valve: The aortic valve is trileaflet. The aortic valve opens well. There is no aortic valve stenosis. No aortic regurgitation is present. Tricuspid Valve: The tricuspid valve is normal in structure and function. Pulmonary artery pressures cannot be estimated because of the lack of a measurable TR jet velocity but the IVC suggests a CVP of around 3 mmHg. There is trace tricuspid regurgitation. Pulmonic Valve: The pulmonic valve leaflets are thin and pliable; valve motion is normal. There is no pulmonic valvular regurgitation. Great Vessels: The aortic root is normal size. The dimensions of the ascending aorta are normal. The IVC is of normal diameter and collapses greater than 50% with a sniff. This suggests a low right atrial pressure of 3 mm Hg. Pericardium/ Pleura There is no pericardial effusion. There is no pleural effusion. MMode/2D Measurements & Calculations LVIDd: 5.2 cm LVOT diam: 2.0 cm LVIDs: 3.4 cm Ao root diam: 3.0 cm FS: 34.2 % asc Aorta Diam: 3.1 cm EPSS: 0.74 cm Ao Arch Diam (Prox Trans): 2.6 cm IVSd: 0.74 cm LVPWd: 1.0 cm LV quigley. diameter/BSA (cm/m^2): 2.5 LV sys. diameter/BSA (cm/m^2): 1.7 LA A2 area: 16.0 cm2 RA long axis: 4.7 cm LA A4 area: 14.3 cm2 RA area: 10.8 cm2 LA length (vol): 4.8 cm RA vol: 21.2 ml LA vol: 40.2 ml RA : 10.4 ml/m2 LA vol index: 19.6 ml/m2 IVC diam: 1.2 cm RVD1 (basal): 3.4 cm TAPSE: 2.3 cm Doppler Measurements & Calculations Ao V2 max: 140.2 cm/sec LVOT Max Perez: 107.1 cm/sec Ao V2 mean: 97.7 cm/sec LV V1 max P.6 mmHg Ao max P.9 mmHg LV V1 VTI: 21.0 cm Ao mean P.3 mmHg SUSANNE(I,D): 2.6 cm2 Ao V2 VTI: 24.5 cm SUSANNE(V,D): 2.3 cm2 sev ratio: 0.86 SUSANNE indexed to BSA (cm^2/m^2): 1.3 MV E max perez: 62.2 cm/sec PA V2 max: 60.4 cm/sec MV A max perez: 79.8 cm/sec PA V2 mean: 46.4 cm/sec MV E/A: 0.78 PA mean P.90 mmHg Med Peak E' Perez: 7.4 cm/sec PA pr(Accel): 56.7 mmHg E/E' med: 8.4 Lat Peak E' Perez: 8.8 cm/sec E/E' lat: 7.1 E/e' average: 7.7 MV dec time: 0.17 sec SV(LVOT): 64.3 ml Reading Physician:05:39 PM
== END ==
PROVIDERS: PCP Family Medicine; Referring Provider Family Medicine; Visit Provider Family Medicine
DX: R07.9 Chest pain, unspecified (principal)
CPT/HCPCS: 93306

== ENCOUNTER → 2020-08-04 11:43 | Outpatient (ROUT) | payer OTHER, SELFPAY ==
[2020-08-04 12:04] LABS: COVID19 -Nasal RAPID Negative (Negative)
== END ==
PROVIDERS: PCP Family Medicine; Visit Provider Physician Assistant
DX: Z20.828 Contact with and (suspected) exposure to other viral communicable diseases (principal)
CPT/HCPCS: 87635

== ENCOUNTER 2020-08-05 12:56 | Day surgery (SDC) | payer OTHER, SELFPAY ==
--- NOTE | 2020-08-05 | PATH_ITS ---
[facility] Accession Number: [id number] . 01 Material submitted: . PART A: small bowel - SMALL BOWEL PART B: gastrointestinal site - GASTRIC PART C: esophagus - PROXIMAL/DISTAL ESOPHAGEAL BX . 01 Clinical history: . A: R/P SPRUE B: R/O H. PYLORI C: R/O EOE . 02 Diagnosis: A. Small Bowel, Biopsy: Duodenal mucosa with no diagnostic abnormality. Negative for active inflammation, features of sprue, dysplasia, or malignancy. . B. Stomach, Biopsy: Antral and body type mucosa with mild chronic gastritis. Negative for Helicobacter by immunohistochemistry. Negative for intestinal metaplasia. Negative for dysplasia and malignancy. . C. Esophagus, Proximal/Distal, Biopsy: Squamous epithelium with no diagnostic abnormality. Intraepithelial eosinophils are not increased. Negative for dysplasia and malignancy. [facility] 08/11/2020 1736 Local . 02 Electronically signed: . Deborah Griffith MD, Pathologist NPI- [id number] . 01 Gross description: . Part A: SMALL BOWEL: Received in formalin are 4 fragment(s) of manzano, soft tissue measuring 0.3 x 0.2 x 0.2 cm to 0.2 x 0.2 x 0.2 cm submitted entirely in 1 cassette(s) Part B: GASTRIC: Received in formalin are 4 fragment(s) of manzano, soft tissue measuring 0.3 x 0.3 x 0.1 cm to 0.1 x 0.1 x 0.1 cm submitted entirely in 1 cassette(s) Part C: PROXIMAL/DISTAL ESOPHAGEAL BX: Received in formalin are 5 fragment(s) of manzano, soft tissue measuring 0.3 x 0.3 x 0.2 cm to 0.1 x 0.1 x 0.1 cm submitted entirely in 1 cassette(s) /QBJ 08/06/2020 0752 Local . 02 Microscopic: . B. An immunohistochemical stain was performed to evaluate for Helicobacter organisms and is negative. The control stain showed appropriate reactivity. . * This test was developed and its performance characteristics determined by [facility]. It has not been cleared or approved by the U.S. Food and Drug Administration. The FDA has determined that such clearance or approval is not necessary. This test is used for clinical purposes. It should not be regarded as investigational or for research. . 02 Pathologist provided ICD-10: R13.10 . 02 CPT . 071282, 544811, 882083, [id number] Performed at: 01 [facility] [address], [place], [place] [id number] MD Enrique Wyatt MD Phone: [phone] Performed at: 02 [facility] [address] [place], [place] [id number] MD Deborah Griffith MD Phone: [phone]
[2020-08-05 13:35] VITALS: BP 125/85; PULSE 73; RESP 20; TEMP 36.1; O2SAT 98; BMI 29.7
[2020-08-05] MEDS: SODIUM CHLORIDE 0.9% 1,000 ML 70 ML IV (13:42)
--- NOTE | 2020-08-05 14:14 | PM.HP.1 ---
History of Present Illness History of Present Illness Date Patient Seen: 08/05/20 Time Patient Seen: 14:10 Chief complaint: SDC Narrative: Patient is a 45 year old male who presented for upper endoscopy. Patient has been having intermittent dysphagia- solid food getting stuck, atypical chest pain and abdominal pain. Patient History Medical History Allergic reaction Anxiety attack Hives Family & Social History Social History: household members spouse Tobacco & Substance use: Smoking Status Current some day smoker alcohol intake frequency 0-2 drinks per day Substance Use Type does not use Meds Home Medications and Allergies Home Medications Medication Instructions Recorded Confirmed Type bupropion HCl 150 mg PO DAILY 08/05/20 08/05/20 History omeprazole 20 mg PO DAILY 08/05/20 08/05/20 History Allergies Allergy/AdvReac Type Severity Reaction Status Date / Time No Known Drug Allergies Allergy Verified 08/05/20 13:42 Review of Systems Review of Systems ROS: Yes All systems reviewed with the patient and are negative except as otherwise documented Exam Vital Signs (past 8 hours): - 08/05/20 13:35 Temperature 96.9 F L Pulse Rate 73 Respiratory Rate 20 Blood Pressure 125/85 Pulse Oximetry 98 Oxygen Delivery Method Room Air Const General: cooperative, healthy appearing, comfortable, well developed and well groomed Nutritional Appearance: average body habitus and well nourished Orientation: alert, awake and oriented x3 HENMT Head: normocephalic and atraumatic Resp Effort & Inspection: normal respiratory effort, able to speak in complete sentences and abnormal respiratory pattern Auscultation: clear to auscultation bilaterally Cardio Rate: regular rate Rhythm: regular rhythm Heart Sounds: S1 normal and S2 normal GI Palpation: soft Auscultation: normal bowel sounds Extrem Right lower extremity: no edema Left lower extremity: no edema Assessment & Plan Assessment & Plan narrative: 1. Intermittent dysphagia 2. Atypical chest pain 3. Abdominal pain EGD today, further recommendations to follow
--- NOTE | 2020-08-05 16:06 | PM.OP.ENDO ---
Operative Date/Time/Diagnoses Date of procedure: 08/05/20 Time of procedure: 15:52 Procedure Notes Procedure in detail: Surgeon: Ashley King DO Procedure: Esophagogastroduodenoscopy with biopsy Preoperative diagnosis: 1. Esophageal dysphagia 2. Atypical chest pain 3. Abdominal pain Postoperative diagnosis: 1. Normal appearing esophagus, biopsy to rule out eosinophilic esophagitis 2. Normal appearing gastric mucosa, biopsy to rule out H pylori 3. Normal appearing duodenum, biopsy to rule out celiac sprue 4. Normal appearing stomach on retroflexion, exam otherwise unremarkable Medications: Conscious sedation using monitored anesthesia care Preanesthesia Assessment An H and P was performed/updated and the Px?s ASA class is 2. The procedure was discussed in detail with the patient. The potential risks and complications including infection, bleeding, missed lesions, perforation, need for surgery in case of perforation, prolonged hospital stay, and were explained. A brief question and answer period was allotted and once all questions were answered, informed consent was obtained. The patient was brought back to the procedure room and placed on standard monitoring. The patient?s vital signs were monitored continuously throughout the entire procedure. Prior to starting, a timeout was performed to confirm the patient?s identity, allergies, medications, and procedure. Procedure in detail The patient was placed in left lateral decubitus position and a bite block was inserted. The tip of the upper endoscope was placed into the mouth and advanced without difficulty under direct visualization into the esophagus. Esophagus: No evidence of esophageal strictures, esophagus appeared unremarkable. Biopsies were obtained to rule out eosinophilic esophagitis from the proximal and distal esophagus. Z-line was regular at the GE junction Stomach: Normal appearing gastric mucosa, biopsy to rule out H pylori infection. Normal appearing stomach on retroflexion Duodenum: Normal-appearing duodenal mucosa, biopsy to rule out celiac The patient tolerated the procedure well and will be brought back to the recovery area to be discharged once criteria are met. Complications There were no complications and estimated blood loss was minimal. Recommendations: Resume previous diet Continue outPx medications Follow up pathology results Office follow up as previously scheduled An emergency contact number was given to the patient for any complications related to the procedure
[2020-08-05 16:12] VITALS: BP 116/69; PULSE 66; RESP 18; TEMP 36.2; O2SAT 95
[2020-08-05 16:17] VITALS: BP 125/76; PULSE 71; RESP 15; O2SAT 95
[2020-08-05 16:22] VITALS: BP 128/83; PULSE 77; RESP 19; O2SAT 95
[2020-08-05 16:25] VITALS: BP 133/81; PULSE 68; RESP 20; TEMP 36.4; O2SAT 94
[2020-08-05 16:40] VITALS: BP 123/86; PULSE 70; RESP 18; TEMP 36.3; O2SAT 96
== END 2020-08-05 16:51 | disposition home or self-care (01) ==
PROVIDERS: PCP Family Medicine; Referring Provider Student in an Organized Health Care Education/Training Program; Visit Provider Student in an Organized Health Care Education/Training Program
PROC: 0DJ08ZZ Inspection of Upper Intestinal Tract, Via Natural or Artificial Opening Endoscopic (ICD-10-PCS; CPT 43235; principal; 2020-08-05 14:15)
DX: K29.50 Unspecified chronic gastritis without bleeding (principal); F17.210 Nicotine dependence, cigarettes, uncomplicated; F41.9 Anxiety disorder, unspecified
CPT/HCPCS: 43239

== ENCOUNTER 2020-08-20 23:08 | Emergency (ER) | payer OTHER, SELFPAY ==
[2020-08-20 23:10] VITALS: BP 169/93; PULSE 93; RESP 17; TEMP 36.6; O2SAT 98; BMI 28.8
--- NOTE | 2020-08-20 23:28 | DI.RAD.S_ITS ---
PROCEDURE: XR CHEST 1V INDICATIONS: chest pain TECHNIQUE: One view of the chest was acquired. COMPARISON: , CR, XR CHEST 2V, 03/11/2019, 13:01. , CR, XR CHEST 2V, 09/30/2019, 15:25. , CR, XR CHEST 1V, 06/30/2020, 22:55. FINDINGS: Surgical changes and devices: None. Lungs and pleura: No focal infiltrates are seen. A stable presumed granuloma is seen involving the right upper lobe medially, as before. No pleural effusions or pneumothorax. Mediastinum: Mediastinal contours appear normal. Heart size is normal. Bones and chest wall: No suspicious bony lesions. Overlying soft tissues appear unremarkable. IMPRESSION: Portable chest within normal limits. Dictated by: Rocky Espinoza M.D. on 08/21/2020 at 7:27 Approved by: Rocky Espinoza M.D. on 08/21/2020 at 7:27
[2020-08-20 23:34] LABS: INR 1.1 (0.9-1.3); Prothrombin Time 12.8 SECONDS (10.1-12.7)
[2020-08-20 23:35] LABS: Add Manual Diff / Slide Review NO; Basophils Absolute Auto 0 /uL (0-100); Basophils Percent Auto 0.3 % (0-2); Eosinophils Absolute Auto 100 /uL (0-450); Eosinophils Percent Auto 0.7 % (2-4); Hematocrit 49.2 % (41-53); Hemoglobin 16.8 g/dL (13.5-17.5); Lymphocytes Absolute Auto 1800 /uL (1100-4500); Lymphocytes Percent Auto 18.1 % (25-40); Mean Corpuscular HGB Conc 34.2 % (30-36); Mean Corpuscular Hemoglobin 29.9 PG (26-34); Mean Corpuscular Volume 87.6 fL (80-100); Monocytes Absolute Auto 600 /uL (0-900); Monocytes Percent Auto 5.6 % (3-14); Neutrophils Absolute Auto 7600 /uL (1500-7000); Neutrophils Percent Auto 75.3 % (50-75); Platelet Count 331 X10^3/uL (150-400); Red Blood Cell Count 5.61 X10^6/uL (4.5-5.9); White Blood Cell Count 10.1 X10^3/uL (4.5-11.0)
[2020-08-20 23:37] LABS: PTT Partial Thromboplastin Tim 33 SECONDS (26.4-36.2)
[2020-08-20 23:38] LABS: Alanine Aminotransferase 42 IU/L (<50); Albumin 4.7 g/dL (3.5-5.0); Albumin Globulin Ratio 1.4 (1.0-2.8); Alkaline Phosphatase 81 U/L (38-126); Aspartate Aminotransferase 33 IU/L (17-59); BUN Creatinine Ratio 12.9 (6-22); Bilirubin Total 1.3 mg/dL (0.2-1.3); Blood Urea Nitrogen 15 mg/dL (9-20); Calcium 9.8 mg/dL (8.4-10.2); Carbon Dioxide 33 mmol/L (22-32); Chloride 97 mmol/L (98-107); Creatine Kinase 62 U/L (55-170); Estimated Glomerular Filt Rate > 60.0 mL/min (>60); Globulin 3.3 g/dL (1.7-4.1); Glucose 102 mg/dL (70-100); HEMOLYSIS < 15 (0-50); Lipase 43 U/L (23-300); Potassium 4.5 mmol/L (3.4-5.1); Sodium 135 mmol/L (137-145)
--- NOTE | 2020-08-20 23:46 | ED_ITS ---
HPI - Extremity Problem General Chief complaint: Extremity Problem,Nontraumatic Stated complaint: Left arm tingling Time Seen by Provider: 08/20/20 23:40 Source: patient and EMS Mode of arrival: EMS Limitations: no limitations History of Present Illness HPI Narrative: This is a 45-year-old male comes emergency department with complaint of tingling in his right lower extremity as well as some pain radiating up the arm into his chest and upper back. Patient states that he has not had similar symptoms in the past in this particular situation. Patient denies any trauma, injury. He does have a little bit of chest pain. He states he has been having chest pain intermittently and been seen by Cardiology as well as Gastroenterology and had an echo as well as EGD. Patient states he does get short of breath intermittently. He was not having any shortness of breath currently. No fevers, he has had a cough for several months. He denies any chills. He does get nauseous occasionally none currently. He did vomit 1 time and states he vomits intermittently. He has not had any constipation or diarrhea. No frequency, dysuria or urgency. He has not had any swelling, skin changes, redness or other color changes to his extremities. He has not had any swelling of his lower extremities. Patient states he does take medication for sleep, anxiety and GERD this includes trazodone, clonazepam, bupropion and o meprazole. Patient has had a right elbow surgery with reconstruction after a fracture dislocation and pieces of bone fragment removed. Denies any other surgeries. States his mother is living, she has cancer. His brother at a young age from IgA nephropathy. Patient denies any allergies. Quit smoking tobacco a year ago, drinks alcoholic occasionally he had a beer and a half this evening. No illicit. Related Data Home Medications Medication Instructions Recorded Confirmed bupropion HCl 150 mg PO DAILY 08/05/20 08/05/20 omeprazole 20 mg PO DAILY 08/05/20 08/05/20 Allergies Allergy/AdvReac Type Severity Reaction Status Date / Time No Known Drug Allergies Allergy Verified 08/05/20 13:42 Review of Systems Review of Systems ROS Unobtainable: All systems reviewed & are unremarkable except as noted in HPI and below Patient History Medical History (Updated 08/21/20 @ 03:01 by Stephanie Davila DO) Allergic reaction Anxiety attack Hives Social History household members: spouse Smoking Status: Current some day smoker Smoking Status: Current some day smoker tobacco type: cigarettes alcohol intake frequency: 0-2 drinks per day Substance Use Type: does not use Exam Narrative Exam Narrative: GENERAL: Alert and oriented x three, well-nourished, well- appearing male in mild distress. HEENT: Head normocephalic, atraumatic, EOMI, pupils reactive, face symmetric, moist mucous membranes NECK: Supple, full range of motion CARDIOVASCULAR: Regular rate and rhythm without murmurs, rubs or gallops. RESPIRATORY: Breath sounds equal bilaterally, no wheezes rales or rhonchi. ABDOMEN: Soft, nontender. Normoactive bowel sounds all 4 quadrants. No guarding or rebound, rigidity, no mass : No CVA tenderness BACK: No cervical, thoracic or lumbar vertebral point tenderness. Patient has normal range of motion. EXT: 2+ radial pulse bilaterally. Patient has no bony tenderness. Full range of motion in upper extremities. 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 Normal sensation to touch. No swelling of upper extremities or lower extremities. NEUROLOGICAL: Cranial nerves II through XII grossly intact. Moving all extremities SKIN: Warm, dry, no petechiae, no rashes or lesions. Initial Vital Signs Initial Vital Signs: Vital Signs Temperature 97.9 F 08/20/20 23:10 Pulse Rate 93 H 08/20/20 23:10 Respiratory Rate 17 08/20/20 23:10 Blood Pressure 169/93 H 08/20/20 23:10 Pulse Oximetry 98 08/20/20 23:10 Scores HEART Score Heart Score history: Slightly Suspicious Heart Score EKG: Normal Heart Score Age: < 45 years old Heart Score risk factors: No known risk factors Heart Score troponin: < or = to normal limit Heart Score Total: 0 PERC Score Age greater than or equal to 50 years: No Heart rate greater than or equal to 100 bpm: No Room Air O2 Sat less than 95%: No Unilateral leg swelling: No Recent trauma or surgery: No Hemoptysis: No Prior PE or DVT: No Hormone Use: No Total PERC Score: 0 Course Orders Ordered: ED Orders 08/20/20 23:20 Complete Blood Count AUTO DIFF Stat Comprehensive Metabolic Panel Stat Lipase Stat Partial Thromboplastin Time Stat Prothrombin Time INR Stat Troponin & CK Cardiac Panel Stat 08/20/20 23:28 XR chest 1V Stat 08/21/20 EKG-12 Lead Stat 08/21/20 01:25 Troponin I Stat Vital Signs Vital signs: Vital Signs - 8 hr 08/20/20 23:10 08/21/20 00:25 08/21/20 00:30 Temperature 97.9 F Pulse Rate 93 H 92 H 82 Respiratory Rate 17 13 14 Blood Pressure 169/93 H Pulse Oximetry 98 100 100 08/21/20 01:00 08/21/20 01:30 08/21/20 02:00 Temperature Pulse Rate 76 74 78 Respiratory Rate 19 19 17 Blood Pressure Pulse Oximetry 100 100 99 08/21/20 02:30 08/21/20 03:00 08/21/20 03:13 Temperature Pulse Rate 77 73 75 Respiratory Rate 18 17 20 Blood Pressure 127/92 H Pulse Oximetry 100 100 99 MDM - Extremity (Nontraumatic) Lab Data Result diagrams: 08/20/20 23:20 08/20/20 23:20 Labs: Lab Results 08/20/20 08/20/20 08/20/20 Range/Units 23:20 23:20 23:20 WBC 10.1 (4.5-11.0) X10^3/uL RBC 5.61 (4.5-5.9) X10^6/uL Hgb 16.8 (13.5-17.5) g/dL Hct 49.2 (41-53) % MCV 87.6 (80-100) fL MCH 29.9 (26-34) PG MCHC 34.2 (30-36) % RDW 13.0 (11.6-14.8) % Plt Count 331 (150-400) X10^3/uL Neut % (Auto) 75.3 H (50-75) % Lymph % (Auto) 18.1 L (25-40) % [place] % (Auto) 5.6 (3-14) % Eos % (Auto) 0.7 L (2-4) % Baso % (Auto) 0.3 (0-2) % Neut # (Auto) 7600 H (3516-5135) /uL Lymph # (Auto) 1800 (9370-9708) /uL [place] # (Auto) 600 (0-900) /uL Eos # (Auto) 100 (0-450) /uL Baso # (Auto) 0 (0-100) /uL PT 12.8 H (10.1-12.7) SECONDS INR 1.1 (0.9-1.3) APTT 33 (26.4-36.2) SECONDS Sodium 135 L (137-145) mmol/L Potassium 4.5 (3.4-5.1) mmol/L Chloride 97 L (98-107) mmol/L Carbon Dioxide 33 H (22-32) mmol/L BUN 15 (9-20) mg/dL Creatinine 1.16 (0.66-1.25) mg/dL Estimated GFR > 60.0 (>60) mL/min BUN/Creatinine Ratio 12.9 (6-22) Glucose 102 H (70-100) mg/dL Calcium 9.8 (8.4-10.2) mg/dL Total Bilirubin 1.3 (0.2-1.3) mg/dL AST 33 (17-59) IU/L ALT 42 (<50) IU/L Alkaline Phosphatase 81 (38-126) U/L Total Creatine Kinase 62 (55-170) U/L CK-MB (CK-2) TNP CK-MB (CK-2) Rel Index TNP Troponin I < 0.012 (0.01-0.034) ng/mL Total Protein 8.0 (6.3-8.2) g/dL Albumin 4.7 (3.5-5.0) g/dL Globulin 3.3 (1.7-4.1) g/dL Albumin/Globulin Ratio 1.4 (1.0-2.8) Lipase 43 (23-300) U/L 08/21/20 Range/Units 01:25 WBC (4.5-11.0) X10^3/uL RBC (4.5-5.9) X10^6/uL Hgb (13.5-17.5) g/dL Hct (41-53) % MCV (80-100) fL MCH (26-34) PG MCHC (30-36) % RDW (11.6-14.8) % Plt Count (150-400) X10^3/uL Neut % (Auto) (50-75) % Lymph % (Auto) (25-40) % [place] % (Auto) (3-14) % Eos % (Auto) (2-4) % Baso % (Auto) (0-2) % Neut # (Auto) (6017-4029) /uL Lymph # (Auto) (5572-1922) /uL [place] # (Auto) (0-900) /uL Eos # (Auto) (0-450) /uL Baso # (Auto) (0-100) /uL PT (10.1-12.7) SECONDS INR (0.9-1.3) APTT (26.4-36.2) SECONDS Sodium (137-145) mmol/L Potassium (3.4-5.1) mmol/L Chloride (98-107) mmol/L Carbon Dioxide (22-32) mmol/L BUN (9-20) mg/dL Creatinine (0.66-1.25) mg/dL Estimated GFR (>60) mL/min BUN/Creatinine Ratio (6-22) Glucose (70-100) mg/dL Calcium (8.4-10.2) mg/dL Total Bilirubin (0.2-1.3) mg/dL AST (17-59) IU/L ALT (<50) IU/L Alkaline Phosphatase (38-126) U/L Total Creatine Kinase (55-170) U/L CK-MB (CK-2) CK-MB (CK-2) Rel Index Troponin I < 0.012 (0.01-0.034) ng/mL Total Protein (6.3-8.2) g/dL Albumin (3.5-5.0) g/dL Globulin (1.7-4.1) g/dL Albumin/Globulin Ratio (1.0-2.8) Lipase (23-300) U/L Imaging Data Chest x-ray: Radiologist's Impression: No significant abnormalities ECG Data Attestation EKG: I personally reviewed and interpreted this ECG as follows: Prior ECG tracings: available for review Interpretation: NSR, rate of 89, pr of 178, qrs of 104, qtc of 408. No ST changes or elevation. Prior ekg from 06/30/20 with no new changes. EKG 2. Sinus rhythm, rate 77, P are 168, QRS 84 and QTC of 400. No new ST changes. Patient has a Q-wave in 3 also appreciated on prior EKG from this evening. MDM Narrative Medical decision making narrative: [age] male comes in with complaint of tingling and pain in his left arm into his chest. Patient has had chronic chest pain but this is a new change with the tingling. No clear musculoskeletal causes. Patient is been evaluated and is currently going through the process of workup by Cardiology as well as Gastroenterology. Patient's heart score is 0. Perc is 0. Troponin x2 is negative with no acute EKG changes no neurologic changes that are suspicious for CVA or TIA Discharge Plan Departure Patient Disposition: Home Clinical Impression: Atypical chest pain, Arm paresthesia, left Instructions: DI for Numbness/Tingling Activity Restrictions/Additional Instructions: Follow-up with your physician. Call for an appointment if you do not have 1 scheduled in the next week. Continue home medications as prescribed Return to the ER for fevers, new or worsening chest pain, shortness of breath, lightheadedness or passing out, new weakness, numbness or inability use your extremity, frame table operator helper objects, difficulty with speech, difficulty with ambulation or other new or concerning symptoms. Prescriptions: No Action bupropion HCl 150 mg tablet extended release 24 hr 150 mg PO DAILY RF: 0 omeprazole 20 mg capsule,delayed release(DR/EC) 20 mg PO DAILY RF: 0 Referrals: Lenore Ruiz DO [Primary Care Provider] -
[2020-08-20 23:50] LABS: Troponin I < 0.012 ng/mL (0.01-0.034)
[2020-08-21] VITALS (8 sets, daily range): BP systolic 127; BP diastolic 92; PULSE 73–92; RESP 13–20; O2SAT 99–100
[2020-08-21 02:05] LABS: Troponin I < 0.012 ng/mL (0.01-0.034)
== END 2020-08-21 03:38 | disposition home or self-care (01) ==
PROVIDERS: Emergency Provider Emergency Medicine; PCP Family Medicine
DX: R07.89 Other chest pain (principal); R20.2 Paresthesia of skin
CPT/HCPCS: 36415; 71045; 80053; 82550; 83690; 84484; 85025; 85610; 85730; 93005; 99283; 99284